=== PATIENT | male | born 1975 | race Caucasian/White ===

== ENCOUNTER 2020-09-02 20:13 | Emergency (ER) | payer MEDICAID, OTHER ==
[2020-09-02] MEDS ORDERED: SILVER SULFADIAZINE CREAM 25 GM TUBE TOP STA (21:56)
--- NOTE | 2020-09-02 21:59 | ED Physician Documentation ---
History of Present Illness - Stated complaint Stated Complaint: RT HAND BURN - Chief complaint Chief Complaint: Burn - History obtained from History obtained from: Patient - History of Present Illness Timing: Today - Additonal information Additional information: 45-year-old male moving a braised pork had grease spilled onto his right hand he has a burn to the dorsum of the right middle finger. He treated this with cool water and ice pack and ibuprofen his pain was mounting and he has come into the emergency department for treatment he has been here for more than an hour his pain is resolved. Review of Systems Constitutional: denies: Fever Eyes: denies: Decreased vision Ears: denies: Ear pain Nose: denies: Congestion Throat: denies: Sore throat Respiratory: denies: Cough GI: denies: Vomiting PD PAST MEDICAL HISTORY - Past Medical History Past Medical History: Yes Cardiovascular: Hypertension Respiratory: Asthma Neuro: Other Endocrine/Autoimmune: HyPOthyroidism, Other Psych: Anxiety, Post traumatic stress disorder Other Past Medical History: hashimotos. Tinnitus - Past Surgical History Past Surgical History: Yes Ortho: Arthroscopic surgery - Allergies Allergies/Adverse Reactions: Allergies Allergy/AdvReac Type Severity Reaction Status Date / Time No Known Drug Allergies Allergy Verified 09/02/20 20:17 - Social History Does the pt smoke?: No Smoking Status: Never smoker Does the pt drink ETOH?: Yes ETOH Use: Beer Does the pt have substance abuse?: No - Immunizations Immunizations are current?: Yes - POLST Patient has POLST: No PD ED PE NORMAL - Vitals Vital signs reviewed: Yes (hypertensive ) - General General: Alert and oriented X 3, No acute distress, Well developed/nourished - HEENT HEENT: Atraumatic, PERRL - Respiratory Respiratory: No respiratory distress - Derm Derm: Normal color, Warm and dry, No rash - Extremities Extremities: No deformity, No edema, Other (There is a second-degree burn to the dorsum of the left middle finger over the distal phalange and the burn is not circumferential. Distal neurovascular components are intact) - Psych Psych: Normal mood, Normal affect Results - Vitals Vitals: Vital Signs - 24 hr 09/02/20 09/02/20 20:17 20:23 Temperature 36.8 C 36.8 C Heart Rate 77 78 Respiratory 18 18 Rate Blood Pressure 200/100 H 198/99 H O2 Saturation 96 98 Oxygen O2 Source Room air PD MEDICAL DECISION MAKING - ED course Complexity details: considered differential, d/w patient ED course: 45-year-old male with a secondary burn to the dorsum of the left middle finger is treated with Silvadene and a dressing will have conservative treatment for burn care Departure - Departure Disposition: 01 Home, Self Care Clinical Impression: Burn of finger Qualifiers: Encounter type: initial encounter Laterality: left Burn degree: partial thickness (2nd degree) Qualified Code(s): T23.222A - Burn of second degree of single left finger (nail) except thumb, initial encounter Condition: Stable Instructions: ED Burn D 2nd Follow-Up: Griffin Lang MD [Primary Care Provider] -
[2020-09-02 22:12] VITALS: BP 155/88
== END 2020-09-02 22:11 | disposition home or self-care (01) ==
LOC: ED 20:13
DX: T23.221A Burn of second degree of single right finger (nail) except thumb, initial encounter (principal); X19.XXXA Contact with other heat and hot substances, initial encounter; Y93.G3 Activity, cooking and baking; I10 Essential (primary) hypertension
CPT/HCPCS: 99282; A9270